=== PATIENT | female | born 1985 | race Caucasian/White ===

== ENCOUNTER → 2019-06-08 10:44 | Outpatient (CLI) | payer SELFPAY | PROVIDERS: Visit Provider Internal Medicine | DX: E03.9 Hypothyroidism, unspecified (principal) | CPT/HCPCS: 36415; 84443 ==

== ENCOUNTER → 2020-08-04 16:08 | Outpatient (CLI) | payer OTHER, SELFPAY ==
--- NOTE | 2020-08-04 16:19 | XR_ITS ---
PROCEDURE: XR WRIST LT MIN 3V CLINICAL INDICATION: left wrist pain COMPARISON: No exams were available for comparison FINDINGS: No fracture or dislocation. No lytic or blastic change. There is normal mineralization. The joint spaces are well-preserved. No significant degenerative/arthritic changes. No erosive changes evident. Other findings:None. IMPRESSION: No acute findings. Dictated by: Jero Marie MD 08/04/2020 18:19 Jero Marie MD in [place] 08/04/2020 18:19
--- NOTE | 2020-08-04 16:19 | XR_ITS ---
PROCEDURE: XR WRIST RT MIN 3V CLINICAL INDICATION: right carpal tunnel syndrome; wrist pain COMPARISON: No exams were available for comparison FINDINGS: No fracture or dislocation. No lytic or blastic change. There is normal mineralization. The joint spaces are well-preserved. No significant degenerative/arthritic changes. No erosive changes evident. Other findings:None. IMPRESSION: No acute findings. Dictated by: Jero Marie MD 08/04/2020 18:18 Jero Marie MD in [place] 08/04/2020 18:18
== END ==
PROVIDERS: Visit Provider Orthopaedic Surgery
DX: G56.01 Carpal tunnel syndrome, right upper limb (principal); M25.532 Pain in left wrist
CPT/HCPCS: 73110

== ENCOUNTER → 2020-09-09 14:21 | Outpatient (CLI) | payer OTHER, SELFPAY ==
[2020-09-09 15:38] LABS: Triiodothryronine (T3) Uptake 36 % (23.5-40.5)
[2020-09-09 15:39] LABS: Free Thyroxine Index 3.5 ug/dL (5.93-13.13); T4 (Thyroxine) 9.6 ug/dl (5.53-11.0)
[2020-09-09 15:52] LABS: Thyroid Stimulating Hormone 0.72 uIU/mL (0.465-4.68)
== END ==
PROVIDERS: Visit Provider Internal Medicine
DX: E03.9 Hypothyroidism, unspecified (principal)
CPT/HCPCS: 36415; 84436; 84443; 84479

== ENCOUNTER → 2020-10-29 15:47 | Outpatient (CLI) | payer OTHER, SELFPAY ==
[2020-10-29 16:06] LABS: Basophils % 0.4 % (0.1-2.0); Eosinophils # 0.4 K/mm3 (0.0-0.4); Eosinophils % 3.6 % (0.1-12.0); Hematocrit 39.2 % (37.0-47.0); Lymphocytes # 1.9 K/mm3 (0.7-4.5); Lymphocytes % 16.3 % (10-50); Mean Corpuscular Hemoglobin 31.9 pg (27.0-31.2); Mean Corpuscular Volume 96.7 fl (81-99); Monocytes # 0.5 K/mm3 (0.1-1.0); Monocytes % 4.3 % (1.7-9.3); Neutrophils # 8.9 K/mm3 (1.8-7.8); Neutrophils % 75.5 % (37.0-80.0); Platelet Count 239 K/mm3 (142-424); Red Blood Count 4.06 M/mm3 (4.20-5.40); Red Cell Distribution Width 12.6 % (11.5-17.5); White Blood Count 11.8 K/mm3 (4.8-10.8)
[2020-10-29 17:06] LABS: Alanine Aminotransferase 21 U/L (12-78); Albumin Level 4.3 g/dl (3.5-5.0); Albumin/Globulin Ratio 1.7 (1.1-1.8); Alkaline Phosphatase 75 U/L (38-126); Anion Gap 10.8 mEq/L (5-15); Aspartate Amino Transferase 24 U/L (14-36); Bilirubin,Total 0.2 mg/dl (0.2-1.3); Blood Urea Nitrogen 16 mg/dl (7-17); Calcium 9.3 mg/dl (8.4-10.2); Carbon Dioxide 28 mmol/L (22.0-30.0); Chloride 101 mmol/L (98-107); Estimated Glomerular Filt Rate 82 ml/min (>60); GFR (African American) 99 ML/MIN (>60); Globulin 2.6 g/dL (1.3-3.2); Glucose 138 mg/dl (74-100); Potassium 3.8 mmoL/L (3.5-5.1); Sodium 136 mmol/L (136-145); Total Protein,Serum 6.9 g/dl (6.3-8.2)
[2020-10-29 18:08] LABS: Coronavirus 19 IgG Antibody Positive (Negative); Coronavirus 19 IgM Antibody Negative (Negative)
== END ==
PROVIDERS: Visit Provider Orthopaedic Surgery
DX: Z01.818 Encounter for other preprocedural examination (principal); Z20.822 Contact with and (suspected) exposure to COVID-19; G56.01 Carpal tunnel syndrome, right upper limb
CPT/HCPCS: 36415; 80053; 85025; 86328

== ENCOUNTER 2020-10-30 12:49 | Day surgery (SDC) | payer OTHER, SELFPAY ==
[2020-10-23 11:12] VITALS: BMI 22.1
[2020-10-30 06:36] LABS: HCG Qualitative, Serum Negative (Negative)
[2020-10-30 13:15] VITALS: BP 141/96; PULSE 96; RESP 18; TEMP 36.7; O2SAT 99
[2020-10-30 15:14] VITALS: TEMP 38
[2020-10-30 15:30] VITALS: BP 128/65; PULSE 97; RESP 18; O2SAT 99
--- NOTE | 2020-10-30 15:41 | P.PN_ITS ---
[facility] Anesthesia Checklist - Patient Identification Patient Identification: Arm Band, Verbal (Name & ) - Structural Data Admitted From: Home Planned Operative Procedure/s: Right CTR Consent for Planned Operative Procedure(s) Verified: Yes Verified Documents: Surgical Consent - NPO Status Verified Time NPO: 00:00 - Chart Verification Results Verified: HCG - Additional verifications Anesthesia Reactions: No Hx Blood Transfusions: No Blood Transfusion Reaction: No - Cardiovascular Assessment Pulse Rhythm: Regular Peripheral Edema: No - Airway Assessment C-Spine Mobility Assessed: No TMJ Mobility Assessed: No Dentition: Good Dentition - Neurological Assessment Level of Consciousness: Awake Hx Seizures: No Numbness or tingling in extremities: No - Genitourinary Assessment Voided rehabilitation program coordinator to O.R.: Yes Urinary Incontinence: None - Anesthesia Plan Anesthesia Risk discussed: Yes Anesthesia Plan: Verified ASA Class: II Anesthesia Type: Regional Block [facility] History I have reviewed the patient's past medical history: Yes Medical History: Denies:: Cancer, Diabetes Mellitus Type 1, Diabetes Mellitus Type 2, Internal Pacemaker, MRSA, Seizures *Have you ever received a pneumonia vaccine?: No *Have you received a flu vaccine this season?: Yes Other Medical History: Denies: Blood Transfusion Reaction Anesthesia experience/problems:: none Other Surgeries: No: Pacemaker Amputation: No Fractures: No - *Social History Last grade of school completed: Advanced degree Smoking Status: Never smoker Alcohol Intake: current Alcohol Intake Frequency:: a few times a month Substance Use Type: denies use *Occupational Status:: employed Housing: house Household Members: significant other *Travel in the last 8 weeks: None Family Hx:: No significant family history
[2020-10-30 15:45] VITALS: BP 136/72; PULSE 98; RESP 18; O2SAT 98
--- NOTE | 2020-10-30 15:48 | HMH.OPNOTE ---
Date of procedure: 10/30/20 Pre-op Diagnosis:: Carpal tunnel syndrome, right Post-op Diagnosis:: Same Procedure performed:: Open carpal tunnel release, right wrist Surgeon:: Jerald Benitez MD Rn Home Health(s):: Nadia May RETAIL LEADER:: Other (Ganesh Aguilera) Anesthesia: regional (Axillary/supraclavicular nerve block) Estimated blood loss (mL): 2 Clinical Note:: Patient is a 35-year-old female with right carpal tunnel syndrome with long-standing symptoms. EMG/NCV studies confirmed carpal tunnel syndrome on the RIGHT side. Patient is having significant and disabling symptoms and has failed to respond adequately to conservative management. Therefore, carpal tunnel release surgery is necessary to relieve symptoms, preserve the remaining fibers of the median nerve, improve function and decrease the pain, paresthesias and weakness and to prevent permanent nerve damage. Please refer to my office note for full details. Operative findings:: The intraoperative findings showed the median nerve to be compressed and hyperemic. The flexor retinaculum was noted to be thick and tight. There was mild synovitis in the carpal tunnel. There was no evidence of any space-occupying lesions within the carpal tunnel. Operative note:: On the day of the surgery the patient was met in the preoperative area. Patient was positively identified and the operative site was marked and initialed by me. A physical examination was performed and the chart was updated. I have again discussed the procedure, risks and benefits and alternatives with the patient. The complications discussed include but are not limited to- bleeding, injury to nerves, blood vessels and tendons, infection, wound dehiscence, incomplete relief/continued pain, persistent numbness, palmar hypersensitivity, pillar pain, DVT/PE, complex regional pain syndrome(CRPS), worsening of nerve damage, failure of the condition to improve, incomplete return of function, bowstringing of tendons, weakness of oil and gas lease pumper strength, recurrence, failure of the surgery to accomplish the desired goals, decreased use of the hand, loss of use of the arm, loss of the hand or arm, loss of life. Likely need for further surgery in the future has been discussed. I've indicated to the patient where the proposed incision would be made and also discussed the possibility of extending the incision if needed to accomplish an effective release. We have discussed how the goal of surgery is to protect the fibers which have remained healthy and hopefully reverse the symptoms of the fibers which are compromised but still recoverable. We have explained that, fibers that are permanently damaged will not recover. Patient asked appropriate questions and all have been answered by me. Patient wished to proceed with the surgery. Patient understood the risks, agreed to proceed with surgery and no guarantees or assurances were given or implied. The patient was brought to the operating room and placed supine on the operating table. The right upper extremity was placed over a side table. All the bony prominences were well-padded. The patient had an axillary nerve block administered by the rn procedures. A well-padded tourniquet cuff was placed over the upper arm. The right upper extremity was prepped and draped in the usual sterile fashion. A preprocedure timeout was performed as per hospital policy. The skin incision was marked using the Golden's landmarks, just ulnar to the thenar crease. The limb was exsanguinated with the Esmarch bandage and tourniquet was inflated to 250 mmHg. Please see nursing records for the total tourniquet time. Golden's landmarks were utilized and a skin incision was made parallel and just ulnar to the thenar crease with a 15 blade. Blunt tissue dissection was carried through the subcutaneous tissue down to the palmar fascia. The palmar fascia was incised with the knife to reveal the transverse carpal ligament. The transverse carpal ligament was adequately exposed and
[2020-10-30 16:00] VITALS: BP 132/76; PULSE 96; RESP 18; O2SAT 98
== END 2020-10-30 16:00 | disposition home or self-care (01) ==
LOC: OR 12:51
PROVIDERS: Visit Provider Orthopaedic Surgery
PROC: (CPT 64721; principal; 2020-10-30 13:45)
DX: G56.01 Carpal tunnel syndrome, right upper limb (principal)
CPT/HCPCS: 64721; 84703; 96374; J0670

== ENCOUNTER → 2021-05-08 07:43 | Outpatient (CLI) | payer OTHER, SELFPAY ==
[2021-05-08 07:46] LABS: Influenza A, PCR Not Detected (NotDetected); Influenza B, PCR Not Detected (NotDetected)
[2021-05-08 08:43] LABS: Coronavirus 19, PCR Detected (NotDetected)
== END ==
PROVIDERS: Visit Provider Internal Medicine
DX: Z20.822 Contact with and (suspected) exposure to COVID-19 (principal); U07.1 COVID-19
CPT/HCPCS: U0003

== ENCOUNTER → 2021-06-29 16:02 | Outpatient (CLI) | payer OTHER, SELFPAY ==
[2021-06-29 16:42] LABS: Basophils # 0.1 K/mm3 (0-0.2); Basophils % 0.7 % (0.1-2.0); Eosinophils # 0.1 K/mm3 (0.0-0.4); Eosinophils % 1.1 % (0.1-12.0); Hematocrit 46.5 % (37.0-47.0); Hemoglobin 15.1 g/dL (12.2-16.2); Lymphocytes # 2.8 K/mm3 (0.7-4.5); Lymphocytes % 30.5 % (10-50); Mean Corpuscular HGB Conc 32.5 g/dL (31.8-35.4); Mean Corpuscular Hemoglobin 32.5 pg (27.0-31.2); Mean Corpuscular Volume 99.8 fl (81-99); Mean Platelet Volume 7.8 fl (7.4-10.4); Monocytes # 0.5 K/mm3 (0.1-1.0); Monocytes % 5.4 % (1.7-9.3); Neutrophils # 5.7 K/mm3 (1.8-7.8); Neutrophils % 62.3 % (37.0-80.0); Platelet Count 346 K/mm3 (142-424); Red Blood Count 4.66 M/mm3 (4.20-5.40); Red Cell Distribution Width 12.9 % (11.5-17.5); White Blood Count 9.1 K/mm3 (4.8-10.8)
[2021-06-29 17:00] LABS: Anion Gap 12.2 mEq/L (5-15); Blood Urea Nitrogen 10 mg/dl (7-17); Calcium 9.6 mg/dl (8.4-10.2); Carbon Dioxide 29 mmol/L (22.0-30.0); Chloride 102 mmol/L (98-107); Estimated Glomerular Filt Rate 114 ml/min (>60); GFR (African American) 138 ML/MIN (>60); Glucose 87 mg/dl (74-100); Potassium 4.2 mmoL/L (3.5-5.1); Sodium 139 mmol/L (136-145)
[2021-06-29 17:17] LABS: Free Thyroxine Index 2.6 ug/dL (5.93-13.13); T4 (Thyroxine) 8.3 ug/dl (5.53-11.0); Triiodothryronine (T3) Uptake 31 % (23.5-40.5)
[2021-06-29 17:31] LABS: Thyroid Stimulating Hormone 4.58 uIU/mL (0.465-4.68)
== END ==
PROVIDERS: Visit Provider Internal Medicine
DX: E03.9 Hypothyroidism, unspecified (principal)
CPT/HCPCS: 36415; 80048; 84436; 84443; 84479; 85025

== ENCOUNTER 2021-07-02 09:07 | Emergency (ER) | payer OTHER, SELFPAY ==
[2021-07-02 09:08] VITALS: BP 165/93; PULSE 113; RESP 20; TEMP 36.7; O2SAT 99; BMI 24.3
--- NOTE | 2021-07-02 09:17 | CT_ITS ---
PROCEDURE: CT HEAD/BRAIN WO CON CLINICAL INDICATION: migraine, visual change Severe migraine, numbness/tingling right side of face COMPARISON: No exams were available for comparison TECHNIQUE: Axial images obtained. All CT scans at the facility use one or more dose reduction, viz: automated exposure control, ma/kV adjustment per patient size (including targeted exams where dose is matched to indication, i.e. head), or iterative reconstruction technique. FINDINGS: Leyva-white matter differentiation is normal. There is no mass effect or midline shift. There is no hydrocephalus. No intra or extra-axial fluid collections or hemorrhage. Soft tissues appear unremarkable. Orbits are unremarkable. Mastoid air cells are well aerated. Sinuses are clear. Osseous structures are unremarkable. IMPRESSION: No acute intracranial process. Dictated by: Marcelle Renee MD 07/02/2021 11:06 Marcelle Renee MD in [place] 07/02/2021 11:06
--- NOTE | 2021-07-02 09:25 | PC.NURSE ---
Notified RAD of head CT
[2021-07-02 09:35] VITALS: BP 115/85; PULSE 81; RESP 16; O2SAT 99
[2021-07-02 09:48] LABS: Basophils # 0.1 K/mm3 (0-0.2); Basophils % 0.6 % (0.1-2.0); Eosinophils # 0.2 K/mm3 (0.0-0.4); Eosinophils % 1.4 % (0.1-12.0); Hematocrit 43.4 % (37.0-47.0); Hemoglobin 14.6 g/dL (12.2-16.2); Lymphocytes # 2.8 K/mm3 (0.7-4.5); Lymphocytes % 26.2 % (10-50); Mean Corpuscular HGB Conc 33.6 g/dL (31.8-35.4); Mean Corpuscular Hemoglobin 32.9 pg (27.0-31.2); Mean Platelet Volume 8.4 fl (7.4-10.4); Monocytes # 0.5 K/mm3 (0.1-1.0); Monocytes % 4.8 % (1.7-9.3); Neutrophils # 7.2 K/mm3 (1.8-7.8); Platelet Count 311 K/mm3 (142-424); Red Blood Count 4.42 M/mm3 (4.20-5.40); Red Cell Distribution Width 12.5 % (11.5-17.5); White Blood Count 10.8 K/mm3 (4.8-10.8)
[2021-07-02 09:49] LABS: Chloride 103 mmol/L (98-107); Potassium 4.1 mmoL/L (3.5-5.1); Sodium 141 mmol/L (136-145)
[2021-07-02 09:50] LABS: HCG Qualitative, Serum Negative (Negative)
[2021-07-02 09:52] LABS: Anion Gap 14.1 mEq/L (5-15); Blood Urea Nitrogen 11 mg/dl (7-17); Carbon Dioxide 28 mmol/L (22.0-30.0); Creatinine Clearance Estimated 110 mL/min (50-200); Estimated Glomerular Filt Rate 95 ml/min (>60); GFR (African American) 115 ML/MIN (>60)
[2021-07-02 09:53] LABS: Calcium 9.2 mg/dl (8.4-10.2); Glucose 101 mg/dl (74-100)
--- NOTE | 2021-07-02 10:00 | PC.NURSE ---
pt gone to ct
--- NOTE | 2021-07-02 10:08 | PC.NURSE ---
pt back from ct
[2021-07-02 10:30] VITALS: BP 116/77; PULSE 72; RESP 16; O2SAT 99
--- NOTE | 2021-07-02 11:12 | HMH.EDGENADL ---
ED Disposition Clinical Impression: Migraine Qualifiers: Migraine type: without aura Status migrainosus presence: without status migrainosus Intractability: not intractable Qualified Code(s): G43.009 - Migraine without aura, not intractable, without status migrainosus Disposition: Home, Self-Care Condition on Discharge: Good Additional Instructions: All medications as directed. Follow-up with PCP in 1 to 2 days. Return emergency room for worsening headache, visual change, gait abnormality. Referrals: Provider,Referral, [Primary Care Provider] - 3 days Time of Disposition: 11:16 - Critical Care Critical Care Time: No Attestation: On 07/02/21, the high probability of a clinically significant, sudden or life threatening deterioration of the following system(s) required my full and direct attention, intervention and personal management. The time I documented below is in addition to time spent performing reported procedures but includes the following listed in this critical care notation. Medical Decision Making - Medical Records Medical records reviewed: Yes: I reviewed the patient's medical records. - Zac Inquiry Pt receiving controlled substance: No Vital Signs: 07/02/21 09:08 Temperature 98.1 F Temperature Source Oral Pulse Rate [Right Radial] 113 H Respiratory Rate 20 Blood Pressure [Right Arm] 165/93 H Blood Pressure Mean [Right Arm] 117 Blood Pressure Source [Right Arm] Automatic Cuff Blood Pressure Position [Right Arm] Sitting 02 Sat by Pulse Oximetry 99 Oxygen Delivery Method Room Air - Lab Data Lab results reviewed: Yes: I reviewed the patient's lab results. Lab Results 07/02/21 09:18: Serum HCG, Qual Negative 07/02/21 09:18: WBC 10.8, RBC 4.42, Hgb 14.6, Hct 43.4, MCV 98.0, MCH 32.9 H, MCHC 33.6, RDW 12.5, Plt Count 311, MPV 8.4, Neut % (Auto) 67.0, Lymph % (Auto) 26.2, [place] % (Auto) 4.8, Eos % (Auto) 1.4, Baso % (Auto) 0.6, Neut # (Auto) 7.2, Lymph # (Auto) 2.8, [place] # (Auto) 0.5, Eos # (Auto) 0.2, Baso # (Auto) 0.1 07/02/21 09:18: Sodium 141, Potassium 4.1, Chloride 103, Carbon Dioxide 28, Anion Gap 14.1, BUN 11, Creatinine 0.70, Estimated Creat Clear 110, Estimated GFR 95, Est GFR ( Amer) 115, Glucose 101 H, Calcium 9.2 Result diagrams: 07/02/21 09:18 07/02/21 09:18 Orders (Tests/Meds): ED MEDICATIONS Discontinued Medications Generic Name Dose Route Start Last Admin Trade Name Anna PRN Reason Stop Dose Admin Ketorolac Tromethamine 30 mg 07/02/21 10:49 07/02/21 10:51 Ketorolac 30mg/Ml Vial IV 07/02/21 10:50 30 mg ONCE ONE Administration - CT Data CT Scan: Head Time Received: 11:[address] Reviewed: Yes: I have reviewed the patient's CT results Preliminary Findings: Normal/NAD Medical Decision Narrative: 35yo F evaluated for migraine. Symptoms are worse than typical. Patient is in no acute distress on initial evaluation. Physical exam is unremarkable. Patient sent for CT of the head without contrast. Routine laboratory studies are collected. Laboratory studies are benign. CT shows no acute abnormality. Patient's pain was treated with Toradol and she has had significant improvement. Discussed all findings with patient at bedside. She is appropriate and stable for discharge home. General Adult HPI - General Chief complaint: Headache Stated complaint: migraine Time Seen by Provider: 07/02/21 09:15 Mode of Arrival: Ambulatory Limitations: No Limitations Description of Symptoms (Recalled from ER Triage Doc. by RN): Pt reports a hx of migraines. States that this AM was the worst migraine I've ever had . Pt denies pain at this time after taking her prescribed med, Ubrevely, but c/o right side face tingling, described as pins and needles . Pt c/o distorted vision in the rt eye. Pt demonstrating anxious behavior d/t the lingering symptoms. - History of Present Illness HPI narrative: 35yo F with known migraine disorder presents the emergency d
[2021-07-02 11:43] VITALS: BP 103/75; PULSE 71; RESP 16; TEMP 36.8; O2SAT 98
== END 2021-07-02 11:45 | disposition home or self-care (01) ==
PROVIDERS: Emergency Provider Family Medicine
DX: G43.009 Migraine without aura, not intractable, without status migrainosus (principal)
CPT/HCPCS: 70450; 80048; 84703; 85025; 96374; 99282

== ENCOUNTER → 2021-07-06 09:38 | Outpatient (CLI) | payer OTHER, SELFPAY ==
--- NOTE | 2021-07-06 09:42 | MR_ITS ---
PROCEDURE: MR HEAD/BRAIN WO CON CLINICAL INDICATION: Headache COMPARISON: No exams were available for comparison TECHNIQUE: Routine multiplanar multi echo sequences are performed without gadolinium enhancement. FINDINGS: No midline shift, mass effect, intracranial hemorrhage, or hydrocephalus. No evidence of acute infarction. The cerebellopontine angle, cerebellum, and brainstem have an unremarkable appearance. The pituitary, optic chiasm, corpus callosum, and craniocervical junction have an unremarkable appearance. No mastoid effusion or sinus air-fluid level. A 12 mm retention cyst is present in the floor of the right maxillary sinus. IMPRESSION: No acute intracranial findings. Negative MRI of the brain. Small right maxillary retention cyst Dictated by: Jero Marie MD 07/07/2021 15:16 Jero Marie MD in [place] 07/07/2021 15:16
== END ==
PROVIDERS: Visit Provider Nurse Practitioner Family
DX: G43.909 Migraine, unspecified, not intractable, without status migrainosus (principal)
CPT/HCPCS: 70551

== ENCOUNTER → 2021-07-16 12:53 | Outpatient (CLI) | payer OTHER, SELFPAY ==
--- NOTE | 2021-07-16 12:54 | CT_ITS ---
PROCEDURE: CT SINUS WO CON CLINICAL HISTORY: frequent SHIPMAN- retention cys COMPARISON: No exams were available for comparison TECHNIQUE: Axial images obtained with sagittal and coronal reformats. All CT scans at the facility use one or more dose reduction, viz: automated exposure control, ma/kV adjustment per patient size (including targeted exams where dose is matched to indication, i.e. head), or iterative reconstruction technique. FINDINGS: No sinus air-fluid level. No significant mucosal thickening. There is a small retention cyst in the floor the right maxillary sinus at approximately 13 mm. The orbits have an unremarkable appearance. There is a small soft tissue density along the anterior aspect of parotid glands and may be due to small lymph nodes at approximately mm. There are few scattered small cervical nodes. Unremarkable TMJs IMPRESSION: Small right maxillary retention cyst otherwise negative sinuses Dictated by: Jero Marie MD 07/18/2021 06:32 Jero Marie MD in [place] 07/18/2021 06:32
--- NOTE | 2021-07-16 12:54 | CT_ITS ---
PROCEDURE: CT SOFT TISSUE NECK W CON CLINICAL HISTORY: migraines Right-sided facial pain COMPARISON: No exams were available for comparison TECHNIQUE: Oral Contrast: None IV Contrast: 75 mL Isovue 370 Axial images obtained with sagittal and coronal reformats. All CT scans at the facility use one or more dose reduction, viz: automated exposure control, ma/kV adjustment per patient size (including targeted exams where dose is matched to indication, i.e. head), or iterative reconstruction technique. FINDINGS: The nasopharynx, oropharynx, hypopharynx have an unremarkable. The glottic subglottic region are unremarkable. There is minimal hypertrophy of the left and anterior aspect of the cricoid cartilage causing some minimal indentation upon the trachea. Unremarkable thyroid. The parotid and submandibular glands are unremarkable. There are few small cervical lymph nodes with no dominant adenopathy. Unremarkable TMJs. Mild degenerative disc disease C5-C6. Mild cervical curvature convex left lung apices are clear. There is dysconjugate gaze with the left eye looking downward into the left IMPRESSION: No acute finding. No mass or abnormal fluid collection. There are few scattered small cervical lymph nodes with no dominant adenopathy. Dysconjugate gaze Dictated by: Jero Marie MD 07/18/2021 06:43 Jero Marie MD in [place] 07/18/2021 06:43
== END ==
PROVIDERS: PCP Nurse Practitioner Family; Visit Provider Otolaryngology
DX: G43.909 Migraine, unspecified, not intractable, without status migrainosus (principal); J34.1 Cyst and mucocele of nose and nasal sinus
CPT/HCPCS: 70486; 70491; Q9967

== ENCOUNTER → 2022-01-18 12:00 | Outpatient (CLI) | payer OTHER, SELFPAY ==
[2022-01-18 15:18] LABS: Thyroid Stimulating Hormone 5.09 uIU/mL (0.465-4.68)
== END ==
PROVIDERS: PCP Family Medicine; Visit Provider Family Medicine
DX: E03.9 Hypothyroidism, unspecified (principal)
CPT/HCPCS: 84443

== ENCOUNTER → 2022-04-21 12:14 | Outpatient (CLI) | payer OTHER, SELFPAY ==
--- NOTE | 2022-04-21 12:36 | XR_ITS ---
FINAL REPORT CLINICAL HISTORY: right elbow pain, no injury FINDINGS: RIGHT ELBOW Three views of the right elbow were obtained. There is no acute fracture or dislocation. The joint spaces are intact. There is no soft tissue abnormality. IMPRESSION: No acute bony abnormality. Reviewed, Interpreted and Dictated by Gabo Mcclelland III, MD Transcribed by Kristy Walls Authenticated and [facility]
[2022-04-21 13:08] LABS: Basophils # 0.1 K/mm3 (0-0.2); Basophils % 1.2 % (0.1-2.0); Eosinophils # 0.1 K/mm3 (0.0-0.4); Eosinophils % 1.2 % (0.1-12.0); Hematocrit 44.7 % (37.0-47.0); Hemoglobin 14.4 g/dL (12.2-16.2); Lymphocytes # 2.2 K/mm3 (0.7-4.5); Lymphocytes % 24.2 % (10-50); Mean Corpuscular HGB Conc 32.2 g/dL (31.8-35.4); Mean Corpuscular Hemoglobin 32.7 pg (27.0-31.2); Mean Corpuscular Volume 101.5 fl (81-99); Mean Platelet Volume 8.1 fl (7.4-10.4); Monocytes # 0.4 K/mm3 (0.1-1.0); Monocytes % 4.6 % (1.7-9.3); Neutrophils # 6.3 K/mm3 (1.8-7.8); Neutrophils % 68.8 % (37.0-80.0); Platelet Count 324 K/mm3 (142-424); Red Cell Distribution Width 12.3 % (11.5-17.5); White Blood Count 9.1 K/mm3 (4.8-10.8)
[2022-04-21 13:34] LABS: Alanine Aminotransferase 21 U/L (12-78); Albumin Level 4.5 g/dl (3.5-5.0); Alkaline Phosphatase 97 U/L (38-126); Anion Gap 11.7 mEq/L (5-15); Aspartate Amino Transferase 26 U/L (14-36); Bilirubin,Direct 0.1 mg/dl (0.0-0.4); Bilirubin,Indirect 0.5 mg/dL (0.0-0.9); Bilirubin,Total 0.6 mg/dl (0.2-1.3); Bilirubin,Unconjugated 0.5 mg/dL (0.0-1.1); Blood Urea Nitrogen 14 mg/dl (7-17); Calcium 9.7 mg/dl (8.4-10.2); Carbon Dioxide 24 mmol/L (22.0-30.0); Chloride 106 mmol/L (98-107); Chol/HDL Ratio 3.2 (1-3.5); Cholesterol 146 mg/dl (140-200); Erythrocyte Sedimentation Rate 8 mm/hr (0-20); Estimated Glomerular Filt Rate 95 ml/min (>60); GFR (African American) 115 ML/MIN (>60); Glucose 98 mg/dl (74-100); HDL Cholesterol 46 mg/dl (40-60); Magnesium 1.8 mg/dl (1.6-2.3); Potassium 3.7 mmoL/L (3.5-5.1); Sodium 138 mmol/L (136-145); Total Protein,Serum 6.8 g/dl (6.3-8.2); Triglycerides 98 mg/dl (30-150); VLDL Cholesterol 20 mg/dL (0-40)
[2022-04-21 13:39] LABS: C-Reactive Protein 0.9 mg/L (0-4)
[2022-04-21 13:52] LABS: 25-OH Vitamin D, Total 77.3 ng/mL (30-100)
[2022-04-21 14:05] LABS: Thyroid Stimulating Hormone 1.02 uIU/mL (0.465-4.68)
[2022-04-22 09:13] LABS: Direct LDL Cholesterol 78 mg/dL (100-129)
[2022-04-22 11:12] LABS: Rapid Plasma Reagin Ab Titer Non Reactive (NonRea<1:1)
[2022-04-22 12:15] LABS: Anti-Centromere B Antibodies <0.2 AI (0.0-0.9); Anti-DNA (DS) Ab Qn <1 IU/mL (0-9); Anti-Jo-1 <0.2 AI (0.0-0.9); Anti-Smith Antibody <0.2 AI (0.0-0.9); Antichromatin Antibodies <0.2 AI (0.0-0.9); Antiscleroderma-70 Antibodies <0.2 AI (0.0-0.9); RA Latex Turbid. <10.0 IU/mL (<14.0); RNP Antibodies 0.2 AI (0.0-0.9); RNP Antibodies 0.3 AI (0.0-0.9); Sjogren's Anti-SS-A <0.2 AI (0.0-0.9); Sjogren's Anti-SS-B <0.2 AI (0.0-0.9)
[2022-04-22 12:59] LABS: Vitamin B12 792 pg/mL (239-931)
[2022-04-22 15:24] LABS: EBV Ab VCA, IgG 28.6 U/mL (0.0-17.9); EBV Ab VCA, IgM <36.0 U/mL (0.0-35.9)
[2022-04-22 15:51] LABS: Monoscreen (Rapid) Negative (Negative)
[2022-04-22 16:13] LABS: Treponema pallidum Ab (FTA-ABS Reactive (Non Reactive)
--- NOTE | 2022-04-23 14:00 | INFXCTL.NOTE ---
Spoke to Vern Rivas and requested information regarding treatment for patients positive t. pallidum. Awaiting call back on specifics of treatment to forward on to the local health department.
--- NOTE | 2022-04-23 14:22 | INFXCTL.NOTE ---
Notified ordering physician, stated holding on treatment at this time, awaiting other test results and will refer on to Infectious Disease.
[2022-04-26 23:09] LABS: Lyme B. burgdorferi PCR Blood Negative (Negative)
[2022-04-27 20:21] LABS: 1,25-Dihydroxy, Vitamin D-2 <10 pg/mL (.); 1,25-Dihydroxy, Vitamin D-3 56 pg/mL (.)
[2022-04-28 14:31] LABS: APTT 25.3 sec (.); INR 1.1 ratio (.); Thrombin Time 18.4 sec (.)
[2022-04-30 18:09] LABS: 1,25 Dihydroxy Vitamin D 56 pg/mL (.)
[2022-04-30 23:47] LABS: Anti-Cardiolipin Antibody IgG <10 GPL (.); Anti-Cardiolipin Antibody IgM 22 MPL (.); Beta-2 Glycoprotein I Ab, IgA <10 SAU (.); Beta-2 Glycoprotein I Ab, IgG <10 SGU (.); Beta-2 Glycoprotein I Ab, IgM <10 SMU (.); Hexagonal Phase Phospholipid 0 sec (.)
== END ==
PROVIDERS: Nurse Practitioner; Physician Assistant; PCP Family Medicine; Visit Provider Internal Medicine
DX: E03.9 Hypothyroidism, unspecified (principal); G50.0 Trigeminal neuralgia; G56.00 Carpal tunnel syndrome, unspecified upper limb; M25.50 Pain in unspecified joint; M79.10 Myalgia, unspecified site; G43.909 Migraine, unspecified, not intractable, without status migrainosus; M62.541 Muscle wasting and atrophy, not elsewhere classified, right hand; M25.521 Pain in right elbow; R53.83 Other fatigue
CPT/HCPCS: 36415; 73080; 80048; 80061; 80076; 82306; 82607; 82652; 83735; 84439; 84443; 85025; 85597; 85598; 85610; 85613; 85651; 85670; 85730; 86140; 86146; 86147; 86225; 86235; 86318; 86431; 86592; 86664; 86665; 86780; 87476

== ENCOUNTER → 2022-04-27 11:43 | Outpatient (CLI) | payer OTHER, SELFPAY | PROVIDERS: PCP Family Medicine; Visit Provider Nurse Practitioner | DX: M79.601 Pain in right arm (principal) | CPT/HCPCS: 36415 ==

== ENCOUNTER → 2022-06-28 13:33 | Outpatient (CLI) | payer OTHER, SELFPAY ==
[2022-06-28 14:59] LABS: Basophils % 0.6 % (0.1-2.0); Eosinophils # 0.1 K/mm3 (0.0-0.4); Eosinophils % 0.9 % (0.1-12.0); Hematocrit 39.9 % (37.0-47.0); Hemoglobin 12.3 g/dL (12.2-16.2); Lymphocytes % 35.2 % (10-50); Mean Corpuscular HGB Conc 30.9 g/dL (31.8-35.4); Mean Corpuscular Hemoglobin 31.3 pg (27.0-31.2); Mean Corpuscular Volume 101.4 fl (81-99); Mean Platelet Volume 7.1 fl (7.4-10.4); Monocytes # 0.3 K/mm3 (0.1-1.0); Monocytes % 6.1 % (1.7-9.3); Neutrophils # 3.2 K/mm3 (1.8-7.8); Neutrophils % 57.1 % (37.0-80.0); Platelet Count 292 K/mm3 (142-424); Red Blood Count 3.94 M/mm3 (4.20-5.40); Red Cell Distribution Width 11.9 % (11.5-17.5); White Blood Count 5.6 K/mm3 (4.8-10.8)
[2022-06-28 16:08] LABS: Alanine Aminotransferase 24 U/L (12-78); Albumin Level 3.9 g/dl (3.5-5.0); Albumin/Globulin Ratio 1.6 (1.1-1.8); Alkaline Phosphatase 85 U/L (38-126); Aspartate Amino Transferase 27 U/L (14-36); Blood Urea Nitrogen 18 mg/dl (7-17); Calcium 8.5 mg/dl (8.4-10.2); Carbon Dioxide 28 mmol/L (22.0-30.0); Chloride 102 mmol/L (98-107); Estimated Glomerular Filt Rate 95 ml/min (>60); GFR (African American) 115 ML/MIN (>60); Globulin 2.4 g/dL (1.3-3.2); Glucose 86 mg/dl (74-100); Sodium 141 mmol/L (136-145); Total Protein,Serum 6.3 g/dl (6.3-8.2)
[2022-06-28 16:09] LABS: Bilirubin,Total < 0.1 mg/dl (0.2-1.3)
== END ==
PROVIDERS: PCP Family Medicine; Visit Provider Nurse Practitioner Family
DX: G51.8 Other disorders of facial nerve (principal); Z79.899 Other long term (current) drug therapy
CPT/HCPCS: 36415; 80053; 80156; 85025

== ENCOUNTER → 2022-07-01 07:49 | Outpatient (CLI) | payer OTHER, SELFPAY ==
--- NOTE | 2022-07-01 07:49 | MR_ITS ---
FINAL REPORT CLINICAL HISTORY: trigeminal neuralgia rt side facial numbness x2-3 years FINDINGS: Multiple projection images of the brain arterial vasculature were obtained without contrast. The raw data images were also reviewed. The distal internal carotid and basilar arteries have an unremarkable appearance without evidence of significant stenosis or occlusion. The distal left vertebral artery is hypoplastic and ends at the plica as a variant. The distal right vertebral artery is normal. The proximal anterior, middle and posterior cerebral arteries have an unremarkable appearance. There is no evidence of significant stenosis or major branch occlusion. No aneurysm or vascular malformation is identified. IMPRESSION: Unremarkable MR angiogram of the head. Reviewed, Interpreted and Dictated by Gabo Mcclelland III, MD Transcribed by Tala Beck Authenticated and . [facility]
== END ==
PROVIDERS: PCP Family Medicine; Visit Provider Specialist
DX: G50.0 Trigeminal neuralgia (principal)
CPT/HCPCS: 70544

== ENCOUNTER → 2022-07-20 12:59 | Outpatient (POV) | payer OTHER, SELFPAY ==
--- NOTE | 2022-07-20 13:24 | EXP.PAIN.OV ---
HPI Data of Consult Patient: new to practice Consult date: 07/20/22 Requesting Physician: Nadia Vu APRN Primary Care Provider: Jose Rivera MD Consult Narrative Reason for consult: Headaches, migraines, facial pain, jaw pain History of present illness: Ms. Schuster is a 37 year old female who presents today as a new patient. She is a referral from Katerin David's office. Today she rates her pain a 4 out of 10. She states the pain is all in her face along the right side in her cheek and jawline. Patient describes this as a numbness, tingling sensation at certain times with other times feeling like a hot poker is hitting her face. Patient states it is always only one-sided along her right cheek and into her right jawline. Patient denies any new trauma or injury. 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 Patient states that over the last year it is progressively worsened. She stated that she has started a headache diary since seen Dr. David. Patient states her headaches/migraines are aggravated with anything touching the right side of her face such as her hair, finger, wind. Patient states she initially thought it was something involving her teeth due to the extreme tenderness and pain she felt. Patient states she did go to her dentist multiple occasions who stated that she had no issues and diagnosed her with trigeminal neuralgia. Patient states that she was prescribed Topamax 25 mg starting in November and had 100% resolution of her migraines/headaches up until May. Patient states that she did go back and see Dr. David who did not think her symptoms were appropriate for trigeminal neuralgia and recommended she see a specialist. Patient stated around May her migraines did come back and they have worsened. Patient states they are debilitating and affect her ability to perform activities of daily living. Patient states that nothing seems to help when she has these. Patient states that Dr. David believes it is not trigeminal neuralgia and that the resolution of her headache/migraines was coincidental and believes they are triggered with the cold weather. Patient states that she did go back on Topamax however it was no help. Patient states then she was prescribed her carbamazepine however this did not help but made her symptoms worse so it was discontinued. Patient states she is back on Topamax now at a higher dose however this still is not providing any relief of her symptoms. Patient denies any fatigue, fever, vision issues. Patient states that she has been to a eye doctor recently and stated that she had no issues. 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 Patient states that Dr. David wants to do a gamma knife procedure however she is looking for other options at this time. Patient is not on any scheduled medications. Her Zac is [id number]. It is been reviewed and appropriate. CC: Nadia Vu APRN [facility] Medical History (Updated 07/20/22 @ 14:08 by Rosa Maria Mora RN) Carpal tunnel syndrome of right wrist GERD (gastroesophageal reflux disease) Hypothyroidism Migraine Surgical History (Updated 07/20/22 @ 14:09 by Rosa Maria Mora RN) H/O eye surgery History of carpal tunnel release Social History (Updated 07/20/22 @ 14:09 by Rosa Maria Mora RN) Smoking Status: Never smoker second hand exposure: No alcohol intake: current substance use type: denies use current occupational status: employed Travel in the last 8 weeks: None household members: significant other housing: house current occupation: NURSE current occupational exposures/hazards: No caffeine: Yes Review of Systems Review of Systems Review of systems:: pertinent systems reviewed and negative unless documented below Review of sys
[2022-07-20 14:04] VITALS: BP 134/97; PULSE 80; RESP 18; O2SAT 97; BMI 23.0
== END ==
PROVIDERS: PCP Family Medicine; Visit Provider Nurse Practitioner Family
DX: G43.009 Migraine without aura, not intractable, without status migrainosus (principal); G51.8 Other disorders of facial nerve
CPT/HCPCS: 99202; G0463

== ENCOUNTER → 2022-11-01 16:05 | Outpatient (CLI) | payer OTHER, SELFPAY ==
[2022-11-01 18:23] LABS: Basophils # 0.1 K/mm3 (0-0.2); Basophils % 1.2 % (0.1-2.0); Eosinophils # 0.2 K/mm3 (0.0-0.4); Eosinophils % 2.2 % (0.1-12.0); Hemoglobin 14.4 g/dL (12.2-16.2); Lymphocytes # 2.5 K/mm3 (0.7-4.5); Lymphocytes % 31.5 % (10-50); Mean Corpuscular HGB Conc 33.4 g/dL (31.8-35.4); Mean Corpuscular Hemoglobin 32.1 pg (27.0-31.2); Mean Corpuscular Volume 96.3 fl (81-99); Monocytes # 0.5 K/mm3 (0.1-1.0); Monocytes % 5.7 % (1.7-9.3); Neutrophils # 4.7 K/mm3 (1.8-7.8); Neutrophils % 59.4 % (37.0-80.0); Platelet Count 337 K/mm3 (142-424); Red Blood Count 4.47 M/mm3 (4.20-5.40); Red Cell Distribution Width 12.3 % (11.5-17.5)
[2022-11-01 18:37] LABS: Creatine Kinase 58 U/L (30-135)
[2022-11-01 18:53] LABS: Free T4 (Free Thyroxine) 1.15 ng/dl (0.78-2.19)
[2022-11-01 19:08] LABS: Thyroid Stimulating Hormone 2.65 uIU/mL (0.465-4.68)
== END ==
PROVIDERS: PCP Family Medicine; Visit Provider Internal Medicine
DX: E03.9 Hypothyroidism, unspecified (principal)
CPT/HCPCS: 36415; 82550; 84439; 84443; 85025

== ENCOUNTER 2023-12-07 13:42 | Outpatient (CLI) | payer OTHER, SELFPAY ==
--- NOTE | 2023-12-07 14:18 | XR_ITS ---
FINAL REPORT CLINICAL HISTORY: CARE HOME USE OF HIGH RISK MEDICATION screening ild vs. infectious disease , pain eval erosive vs. inflammatory arthritis FINDINGS: Two views of the chest were obtained. The heart size and pulmonary vascularity are within normal limits. The mediastinum is normal. No acute pulmonary abnormality is identified. There is no pneumothorax. The bony thorax is intact. IMPRESSION: No active cardiopulmonary disease. Reviewed, Interpreted and Dictated by Gabo Mcclelland III, MD Transcribed by Tala Beck Authenticated and [facility]
--- NOTE | 2023-12-07 14:18 | XR_ITS ---
FINAL REPORT CLINICAL HISTORY: JOINT PAIN,EVAL FOR EROSIVE VS INFALMMATORY ARTHRITIS FINDINGS: LUMBAR SPINE Six views demonstrate no acute fracture. There are minimal degenerative changes with small osteophytes. There is no malalignment. IMPRESSION: No acute process. Reviewed, Interpreted and Dictated by Gabo Mcclelland III, MD Transcribed by Tala Beck Authenticated and [facility]
--- NOTE | 2023-12-07 14:18 | XR_ITS ---
FINAL REPORT CLINICAL HISTORY: JOINT PAIN,EVAL FOR EROSIVE VS INFALMMATORY ARTHRITIS FINDINGS: Sacroiliac joints Three views were obtained. There is no acute fracture or dislocation. The joint spaces appear normal. No soft tissue abnormality is identified. IMPRESSION: No acute process. Reviewed, Interpreted and Dictated by Gabo Mcclelland III, MD Transcribed by Tala Beck Authenticated and [facility]
--- NOTE | 2023-12-07 14:18 | XR_ITS ---
FINAL REPORT CLINICAL HISTORY: JOINT PAIN,EVAL FOR EROSIVE VS INFALMMATORY ARTHRITIS COMPARISON: 04/21/2022 FINDINGS: Right elbow Three views were obtained. There is no acute fracture or dislocation. The joint spaces appear normal. No joint effusion is identified. No soft tissue abnormality is identified. IMPRESSION: No acute process. Reviewed, Interpreted and Dictated by Gabo Mcclelland III, MD Transcribed by Tala Beck Authenticated and [facility]
--- NOTE | 2023-12-07 14:18 | XR_ITS ---
FINAL REPORT CLINICAL HISTORY: JOINT PAIN,EVAL FOR EROSIVE VS INFALMMATORY ARTHRITIS FINDINGS: Left hand Three views were obtained. There is no acute fracture or dislocation. The joint spaces appear normal. No soft tissue abnormality is identified. There is no evidence of bony erosion. The bones are well mineralized. IMPRESSION: No acute process. Reviewed, Interpreted and Dictated by Gabo Mcclelland III, MD Transcribed by Tala Beck Authenticated and [facility]
--- NOTE | 2023-12-07 14:18 | XR_ITS ---
FINAL REPORT CLINICAL HISTORY: JOINT PAIN,EVAL FOR EROSIVE VS INFALMMATORY ARTHRITIS FINDINGS: Right hand Three views were obtained. There is no acute fracture or dislocation. The joint spaces appear normal. No soft tissue abnormality is identified. There is no evidence of bony erosion. The bones are well mineralized. IMPRESSION: No acute process. Reviewed, Interpreted and Dictated by Gabo Mcclelland III, MD Transcribed by Tala Beck Authenticated and [facility]
[2023-12-07 14:28] LABS: Basophils # 0.1 K/mm3 (0-0.2); Basophils % 1.1 % (0.1-2.0); Eosinophils # 0.2 K/mm3 (0.0-0.4); Eosinophils % 2.4 % (0.1-12.0); Hematocrit 42.2 % (37.0-47.0); Hemoglobin 14.3 g/dL (12.2-16.2); Lymphocytes # 2.4 K/mm3 (0.7-4.5); Lymphocytes % 27.5 % (10-50); Mean Corpuscular Hemoglobin 33.7 pg (27.0-31.2); Mean Platelet Volume 8.6 fl (7.4-10.4); Monocytes # 0.5 K/mm3 (0.1-1.0); Monocytes % 5.6 % (1.7-9.3); Neutrophils # 5.5 K/mm3 (1.8-7.8); Neutrophils % 63.4 % (37.0-80.0); Platelet Count 298 K/mm3 (142-424); Red Blood Count 4.26 M/mm3 (4.20-5.40); Red Cell Distribution Width 12.6 % (11.5-17.5); White Blood Count 8.7 K/mm3 (4.8-10.8)
[2023-12-07 14:53] LABS: Chloride 105 mmol/L (98-107); Potassium 3.9 mmoL/L (3.5-5.1); Sodium 139 mmol/L (136-145)
[2023-12-07 14:56] LABS: Alanine Aminotransferase 29 U/L (12-78); Albumin Level 4.2 g/dl (3.5-5.0); Albumin/Globulin Ratio 1.8 (1.1-1.8); Alkaline Phosphatase 76 U/L (38-126); Anion Gap 6.9 mEq/L (5-15); Aspartate Amino Transferase 34 U/L (14-36); Bilirubin,Total 0.3 mg/dl (0.2-1.3); Blood Urea Nitrogen 12 mg/dl (7-17); Calcium 9.8 mg/dl (8.4-10.2); Carbon Dioxide 31 mmol/L (22.0-30.0); Estimated Glomerular Filt Rate 94 ml/min (>60); GFR (African American) 113 ML/MIN (>60); Globulin 2.3 g/dL (1.3-3.2); Glucose 84 mg/dl (74-100); Total Protein,Serum 6.5 g/dl (6.3-8.2)
[2023-12-07 15:02] LABS: C-Reactive Protein 2.5 mg/L (0-4)
[2023-12-07 16:03] LABS: Erythrocyte Sedimentation Rate 15 mm/hr (0-20)
[2023-12-08 06:57] LABS: HBsAg Screen Negative (Negative); HCV Ab Non Reactive (Non Reactive); Hep A Ab, IGM Negative (Negative); Hep B Core Ab, IgM Negative (Negative)
[2023-12-08 08:54] LABS: Complement C3 114 mg/dL (82-167); Immunoglobulin A, Qn 220 mg/dL (87-352); Immunoglobulin M, Qn 161 mg/dL (26-217); Thyroid Peroxidase Antibodies 177 IU/mL (0-34)
[2023-12-08 12:01] LABS: Immunoglobulin G, Qn 891 mg/dL (586-1602)
[2023-12-08 12:58] LABS: Anti-DNA (DS) Ab Qn <1 IU/mL (0-9)
[2023-12-08 14:18] LABS: Albumin 4.1 g/dL (2.9-4.4); Alpha-1-Globulin 0.2 g/dL (0.0-0.4); Alpha-2-Globulin 0.7 g/dL (0.4-1.0); Angiotensin Converting Enzyme 64 U/L (14-82); Complement, Total (CH50) 59 U/mL (>41); Gamma Globulin 0.9 g/dL (0.4-1.8); Protein, Total 6.8 g/dL (6.0-8.5)
[2023-12-08 15:24] LABS: Thyroglobulin Level 1.7 IU/mL (0.0-0.9)
[2023-12-08 17:09] LABS: Anti-Cyclic Citrullinated Pept 5 units (0-19); Deamidated Gliadin Abs, IgA 5 units (0-19); Deamidated Gliadin Abs, IgG 4 units (0-19); Tissue Transglutaminase IgA Ab <2 U/mL (0-3); Tissue Transglutaminase IgG Ab 2 U/mL (0-5)
[2023-12-09 05:11] LABS: Beta-2 Glycoprotein I Ab, IgA <9 (0-25); Beta-2 Glycoprotein I Ab, IgG <9 (0-20); Beta-2 Glycoprotein I Ab, IgM <9 (0-32); Lupus Reflex Interpretation Comment: (.); dRVVT 38.5 sec (0.0-47.0)
[2023-12-09 07:13] LABS: Cytoplasmic (C-ANCA) <1:20 titer (Neg:<1:20); Endomysial IgA Antibody Negative (Negative); Perinuclear (P-ANCA) <1:20 titer (Neg:<1:20); Thyroid Stimulating Immunoglob 0.32 IU/L (0.00-0.55)
[2023-12-09 13:34] LABS: Reticulin IgA Antibody Negative titer (Neg:<1:2.5)
[2023-12-09 13:40] LABS: Miscellaneous Test SCANNED IMAGE
[2023-12-10 15:18] LABS: Lyme B. burgdorferi PCR Blood Negative (Negative)
[2023-12-19 18:24] LABS: HLA-B27 Negative (.)
[2023-12-20 08:59] LABS: Anti-DNA (DS) Ab Qn <1; PDF SCANNED IMAGE
[2023-12-20 09:01] LABS: Phosphatidylethanol (PEth) Negative
[2023-12-20 09:02] LABS: Anti-DNA (DS) Ab Charge YES; Antinuclear Antibodies (ANA) Negative
== END 2023-12-07 23:59 ==
LOC: RAD 13:45
PROVIDERS: PCP Family Medicine; Visit Provider Internal Medicine Rheumatology
DX: R51.9 Headache, unspecified (principal); R76.8 Other specified abnormal immunological findings in serum; Z79.899 Other long term (current) drug therapy; Z01.89 Encounter for other specified special examinations; Z11.59 Encounter for screening for other viral diseases
CPT/HCPCS: 36415; 71046; 72110; 72202; 73080; 73130; 80053; 80074; 80321; 82164; 82784; 83516; 84155; 84165; 84445; 85025; 85613; 85651; 86038; 86140; 86146; 86161; 86162; 86200; 86225; 86235; 86255; 86256; 86376; 86800; 86812; 87476

== ENCOUNTER 2024-04-03 10:27 | Outpatient (POV) | payer OTHER, SELFPAY | END 2024-04-03 23:59 | disposition home or self-care (01) | LOC: SC 10:28 | PROVIDERS: PCP Family Medicine; Visit Provider Dermatology | DX: Z00.00 Encounter for general adult medical examination without abnormal findings (principal) ==

== ENCOUNTER 2024-05-15 10:59 | Outpatient (POV) | payer OTHER, SELFPAY | END 2024-05-15 23:59 | disposition home or self-care (01) | LOC: SC 10:59 | PROVIDERS: PCP Family Medicine; Visit Provider Dermatology | DX: Z00.00 Encounter for general adult medical examination without abnormal findings (principal) ==

== ENCOUNTER 2024-08-27 11:16 | Outpatient (CLI) | payer OTHER, SELFPAY ==
[2024-08-27 17:52] LABS: Coronavirus 19, PCR Not Detected (NotDetected); Influenza B, PCR Not Detected (NotDetected)
[2024-08-28 01:13] LABS: Influenza A, PCR Detected (NotDetected)
== END 2024-08-27 23:59 | disposition home or self-care (01) ==
LOC: LAB.DROPOF 08-28 11:16
PROVIDERS: PCP Nurse Practitioner Family; Visit Provider Nurse Practitioner Family
DX: J09.X9 Influenza due to identified novel influenza A virus with other manifestations (principal); R51.9 Headache, unspecified; R53.83 Other fatigue
CPT/HCPCS: 87636

== ENCOUNTER 2024-10-31 22:13 | Outpatient (CLI) | payer OTHER, SELFPAY ==
[2024-11-01 00:13] LABS: Chol/HDL Ratio 4.7 (1-3.5); Cholesterol 189 mg/dl (140-200); HDL Cholesterol 40 mg/dl (40-60); Triglycerides 194 mg/dl (30-150); VLDL Cholesterol 39 mg/dL (0-40)
[2024-11-01 00:46] LABS: Thyroid Stimulating Hormone 2.69 uIU/mL (0.465-4.68)
== END 2024-10-31 23:59 | disposition home or self-care (01) ==
LOC: LAB.DROPOF 22:14
PROVIDERS: PCP Nurse Practitioner Family; Visit Provider Nurse Practitioner Family
DX: E03.9 Hypothyroidism, unspecified (principal)
CPT/HCPCS: 80061; 84443

== ENCOUNTER 2025-06-19 13:26 | Outpatient (CLI) | payer OTHER, SELFPAY ==
[2025-06-19 16:14] LABS: Hematocrit 42.0 % (37.0-47.0); Hemoglobin 14.5 g/dL (12.2-16.2); Immature Granulocytes % 0.3 %; Mean Corpuscular HGB Conc 34.5 g/dL (31.8-35.4); Mean Corpuscular Hemoglobin 32.7 pg (27.0-31.2); Mean Corpuscular Volume 94.8 fl (81-99); Nucleated Red Blood Cells % 0 %; Platelet Count 300 K/mm3 (142-424); Red Blood Count 4.43 M/mm3 (4.20-5.40); Red Cell Distribution Width-SD 41.1 fL; White Blood Count 10.0 K/mm3 (4.8-10.8)
[2025-06-19 16:55] LABS: Alanine Aminotransferase 21 U/L (12-78); Albumin Level 4.7 g/dl (3.5-5.0); Albumin/Globulin Ratio 1.8 (1.1-1.8); Alkaline Phosphatase 87 U/L (38-126); Anion Gap 16.7 mEq/L (5-15); Aspartate Amino Transferase 25 U/L (14-36); Bilirubin,Total 0.7 mg/dl (0.2-1.3); Blood Urea Nitrogen 21 mg/dl (7-17); Calcium 9.5 mg/dl (8.4-10.2); Carbon Dioxide 25 mmol/L (22.0-30.0); Chloride 101 mmol/L (98-107); Creatinine,Serum 0.80 mg/dl (0.52-1.04); Estimated Glomerular Filt Rate 80 ml/min (>60); GFR (African American) 97 ML/MIN (>60); Globulin 2.6 g/dL (1.3-3.2); Glucose 86 mg/dl (74-100); Potassium 4.7 mmoL/L (3.5-5.1); Sodium 138 mmol/L (136-145); Total Protein,Serum 7.3 g/dl (6.3-8.2)
[2025-06-19 17:00] LABS: C-Reactive Protein 1.7 mg/L (0-4)
[2025-06-19 17:26] LABS: Thyroid Stimulating Hormone 1.99 uIU/mL (0.465-4.68)
[2025-06-19 17:45] LABS: Vitamin B12 950 pg/mL (239-931)
--- OUTSIDE RECORDS SUMMARY | 2025-06-20 12:15 | XMS_ITS | Clinical Summary ---
Author Organization Healthcare Address [address] [place] [address] Care Team Providers Care Java Solutions Architect Name Role Phone Jose Rivera MD Primary Care Provider [phone] Allergies No known active allergies Medications topiramate 50 MG tablet 07/08/2022 Active Euthyrox 137 MCG tablet 08/02/2022 Active ubrogepant (Ubrelvy) 100 MG tablet Take 100 mg by mouth 1 (one) time if needed for migraine. After 2 hours, a second dose may be taken if needed. Maximum dose: 200 mg in 24-hour period. Active Rimegepant Sulfate (Nurtec) 75 MG tablet dispersible Take by mouth. Active Active Problems Problem Noted Date Diagnosed Date Trigeminal neuralgia 08/04/2022 Social History Tobacco Use Types Packs/Day Years Used Date Smoking Tobacco: Never Smokeless Tobacco: Never Tobacco Cessation:Counseling Given: Not Answered Alcohol Use Standard Drinks/Week Comments Yes 0 (1 standard drink = 0.6 oz pur e alcohol) socially Comments Unknown Sex and Gender Information Value Date Recorded Sex Assigned at Not on file Legal Sex Female 3:37 PM EST Gender Identity Not on file Sexual Orientation Not on file Last Filed Vital Signs Vital Sign Reading Time Taken Comments Blood Pressure 112/82 08/05/2022 8:36 AM EST Pulse - - Temperature - - Respiratory Rate - - Oxygen Saturation - - Inhaled Oxygen Concentration - - Weight 59.3 kg (130 lb 11.7 oz) 08/05/2022 8:36 AM EST Height 160 cm (5' 3 ) 08/05/2022 8:36 AM EST Body Mass Index 23.16 08/05/2022 8:36 AM EST Plan of Treatment Health Maintenance Due Date Last Done Comments [facility]-Depression Screening 1985 [facility]-Infant/Child/Adol SDOH Screenings 1985 [facility]-Varicella Vaccines (1 of 2 - 13+ 2-dose series) 1998 [facility]- SDOH Screenings 2003 [facility]-Adult SDOH Screenings 2003 [facility]-Hepatitis B Vaccines (1 of 3 - 19+ 3-dose series) 2004 [facility]-Pap Smear 2006 HPV Vaccines (1 - 3-dose SCDM series) 2012 [facility]-Cervical Cancer Screening 2015 [facility]-HPV/Cotest 2015 [id number] Vaccine (3 - 2024- season) 2025 10/03/2020, 09/03/2020 [facility]-Influenza Vaccine (#1) 2025 [facility]-DTaP,Tdap,and Td Vaccines (2 - Td or Tdap) 06/01/2032 06/01/2022 [facility]-Zoster Vaccines (1 of 2) 2035 [facility]-HIB Vaccines Aged Out No longer e ligible based on patient's age to complete this topic [facility]-Hepatitis A Vaccines Aged Out No longer eligible based on patient's age to complete this topic [facility]-IPV Vaccines Aged Out No longer e ligible based on patient's age to complete this topic [facility]-Pneumococcal Vaccine: Pediatrics (0 to 5 Years) and At-Risk Patients (6 to 49 Years) Aged Out No longer eligible b ased on patient's age to complete this topic [facility]-Rotavirus Vaccines Aged Out No lo nger eligible based on patient's age to complete this topic Insurance [employer] [facility] MEDICAID Care Teams Java Solutions Architect Relationship Specialty Start Date End Date Jose Rivera MD PCP - General 08/05/22
--- OUTSIDE RECORDS SUMMARY | 2025-06-20 12:15 | XMS_ITS | Clinical Summary ---
Author Organization [facility] Address [address], [address] [place] [address] Care Team Providers Care Inspector Materials And Processes Name Role Phone Laxmi Sctot MD Primary Care Provider Unav ailable Allergies No known active allergies Medications levothyroxine (SYNTHROID) 100 MCG tablet Take 75 mcg by mouth Daily Active famotidine (PEPCID) 20 MG tablet Take 20 mg by mouth 2 times daily Active omeprazole (PRILOSEC) 20 MG delayed release capsule Take 40 mg by mouth daily Active Social History Tobacco Use Types Packs/Day Years Used Date Smoking Tobacco: Never Alcohol Use Standard Drinks/Week Comments Yes 0 (1 standard drink = 0.6 oz pur e alcohol) occ Comments Unknown Sex and Gender Information Value Date Recorded Sex Assigned at Not on file Legal Sex Female 3:28 AM EDT Gender Identity Not on file Sexual Orientation Not on file Last Filed Vital Signs Vital Sign Reading Time Taken Comments Blood Pressure 136/98 12/13/2016 3:30 AM EDT Pulse 103 12/13/2016 3:30 AM EDT Temperature 36.8 C (98.3 F) 12/13/2016 3:30 AM EDT Respiratory Rate 18 12/13/2016 3:30 AM EDT Oxygen Saturation 100% 12/13/2016 3:30 AM EDT Inhaled Oxygen Concentration - - Weight 54.4 kg (120 lb) 12/13/2016 3:30 AM EDT Height 160 cm (5' 3 ) 12/13/2016 3:30 AM EDT Body Mass Index 21.26 12/13/2016 3:30 AM EDT Plan of Treatment Not on file Care Teams Inspector Materials And Processes Relationship Specialty Start Date End Date Laxmi Scott MD PCP - General 07/14/12
[2025-06-25 20:14] LABS: 1,25 Dihydroxy Vitamin D 68 pg/mL (.); 1,25-Dihydroxy, Vitamin D-2 <10 pg/mL (.); 1,25-Dihydroxy, Vitamin D-3 68 pg/mL (.)
[2025-06-26 02:10] LABS: Anti-La (SS-B) Ab (RDL) < 20 Units (<20); Anti-Ro (SS-A) Ab (RDL) < 20 Units (<20)
== END 2025-06-19 23:59 | disposition home or self-care (01) ==
LOC: LAB.DROPOF 06-20 12:13
PROVIDERS: PCP Nurse Practitioner Family; Visit Provider Nurse Practitioner Family
DX: E53.9 Vitamin B deficiency, unspecified (principal); M79.2 Neuralgia and neuritis, unspecified; E06.3 Autoimmune thyroiditis
CPT/HCPCS: 80053; 82607; 82652; 84443; 85025; 85651; 86140; 86235